=== PATIENT | female | born 1970 | race African-American/Black ===

== ENCOUNTER 2023-02-13 15:12 | Outpatient (REF) | payer OTHER, MEDICAID, SELFPAY | END 2023-02-13 15:13 | disposition home or self-care (01) | LOC: LAB 15:12 | DX: B99.9 Unspecified infectious disease (principal); B95.62 Methicillin resistant Staphylococcus aureus infection as the cause of diseases classified elsewhere | CPT/HCPCS: 36415; 80170 ==